=== PATIENT | male | born 1955 | race Caucasian/White ===

== ENCOUNTER 2024-03-14 20:17 | Emergency (ER) | payer OTHER, MEDICARE, SELFPAY ==
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
[2024-03-14 20:24] VITALS: BP 119/88; PULSE 84; RESP 18; TEMP 37; BMI 27.4
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
--- OUTSIDE RECORDS SUMMARY | 2024-03-14 22:13 | XMS_ITS | Continuity of Care Document ---
Author Organization [facility] Address [address] [place] [address] Phone Care Team Providers Care Battery Container Tester Name Role Phone Ye Perez MD Attending Provider Care Teams Visit Care Team Team Status: Inactive Member Role Status Dates Ye Perez MD [facility] Attending Provider Active Start: November 27, 2023 End: November 27, 2023 Visit Care Team Team Status: Inactive Member Role Status Dates Ye Perez MD [facility] Attending Provider Active Start: December 19, 2023 End: December 19, 2023 Patient Care Team Team Status: Inactive Member Role Status Dates Ye Perez MD [facility] Attending Provider Active Start: January 24, 2024 End: January 24, 2024 Chief Complaint and Reason for Visit Chief Complaint Admit Date Abnormal Echo November 27, 2023 2:20pm Abnormal Echo December 19, 2023 1: 06pm Abnormal Echo January 24, 2024 1 :43pm Reason for Visit Admit Date Edema November 27, 2023 2:20pm HFrEF (heart failure with reduced ejecti on fraction) November 27, 2023 2:20pm Abnormal echocardiography November 2:20pm HFrEF (heart failure with reduced ejecti on fraction) December 19, 2023 1:06pm Abnormal echocardiography December 18 1:06pm HFrEF (heart failure with reduced ejecti on fraction) January 24, 2024 1:43pm Abnormal echocardiography January 24, 2024 1:43pm Allergies, Adverse Reactions, Alerts No known allergies Social History Smoking Status Status Start Date End Date Date of Observa tion Ex-smoker (finding) January 24, 2024 8:09am Observation Status Observation Response Date of Response marital status January 23 8:09am Patient Sex Male January 23 3:57pm Assigned Sex Male [birth year] 1 956 Problems Active Problems Medical Problem Onset Date Status HFrEF (heart failure with reduced ejection fract ion) Unknown Active Edema Unknown Active Medications Medication Status Dose Units Route Directions Qty Days St art Date Stop Date End Date Instructions Adherence [id number] Active 1000 IU PO Daily 0 2012 4:43pm Magnesium Glycinate (Mag Glycinate) tablet Active TABLET 0 May 20, 2014 3:04pm Zinc Gluconate,Z inc Picolinate capsule Active CAPSUL E 0 May 20, 2014 3:04pm allergy tablets Active 2 TABLET PO Three Times A Day 0 May 20, 2014 3:04pm Atorvastati n 20 mg tablet Active 20 MG PO Daily 90 2023 1:45pm Sacubitril- Valsartan (Entresto) 24-26 mg tablet Active 1 TABLET PO Twice A Day 60 Octobe r 2023 11:41a m If tolerates increase dose to Oxybutynin Chloride 10 mg tablet extended release 24hr Active 10 MG PO Daily 2023 11:00p m Tamsulosin 0.4 mg capsule Active 0.4 MG PO Bedtime 2023 11:00p m Spironolact one (Aldactone) 25 mg tablet Active 25 MG PO Daily 30 2023 11:00p m Dapaglifloz in Propanediol (Farxiga) 10 mg tablet Active 10 MG PO Every Morning 30 Decobe r 2023 11:00p m Metoprolol Succinate (Toprol Xl) 100 mg tablet extended release 24 hr Active 100 MG PO Daily 30 Decobe r 2023 11:00p m Vitamin E Mixed 400 unit capsule Active UNIT PO Novemb er 2023 12:00a m Turmeric 400 mg capsule Active MG PO Novemb er 2023 12:00a m Metoprolol Succinate (Toprol Xl) 50 mg tablet extended release 24 hr Active 50 MG PO Daily 30 b er 2023 12:00a m this in addition to his 100mg tablet Procedures Procedure Date Performed Status CA EKG November 27, 2023 1:23pm comp leted CA EKG December 19, 2023 12:07pm comple alexis CA EKG January 24, 2024 1:44pm active Relevant Diagnostic Tests and/or Laboratory Data Laboratory Results Test Date/Time Result Interpretation Reference Range Result Comment Performing Site Sodium Level December 19, 2023 1:00pm 139 mmol/L 133-[address] [facility] [id number] [address] [place] [address] Potassium Level December 19, 2023 1:00pm 4.5 mmol/L 3.5-5.[address] [facility] [id number] [address] [place] [address] [place] [address] Chloride Level December 19, 2023 1:00pm 102 mmol/L 98-[address] [facility] [id number] [address] [place] [address] Carbon Dioxide Level December 19, 2023 1:00pm 28 mmol/L 21-[address] [facility] [id number] [address] [place] [address] [place] [address] Anion Gap December 19, 2023 1:00pm 9 mmol/L 3-[address] [facility] [id number] [address] [place] [address] Calcium Level December 19, 2023 1:00pm 9.5 mg/dL 8.6-10.[address] [facility] [id number] [address] [place] [address] [place] [address] Glucose Level December 19, 2023 1:00pm 91 mg/dL 70-99 A fasting glucose of 100-125 mg/dL indicates increased risk for diabetes (prediabetes).I nterpretive information based on Diagnosis and Classification of Diabetes Mellitus, [place] [employer]. [facility] [id number] [address] [place] [address] Blood Urea Nitrogen December 19, 2023 1:00pm 23 mg/dL 7-[address] [facility] [id number] [address] [place] [address] Creatinine December 19, 2023 1:00pm 1.5 mg/dL Above high normal 0.7-1.[address] [facility] [id number] [address] [place] [address] BUN/Creatinin e Ratio December 19, 2023 1:00pm 15.3 10.0-20.[address] [facility] [id number] [address] [place] [address] Estimated GFR (MDRD) December 19, 2023 1:00pm 47 mL/Min Below low normal 60-130 The Modified Diet in Renal Disease (MDRD) equation is accurate in non-hospitalize d patients known to have CKD and is the preferred method for drug dosing. The MDRD equation is less accurate at higher levels of BMI (> 20 kg/m2) and in populations with normal or near-normal GFR (above 60 mL/min per 1.73 m2), for which the CKD-EPI equation is preferred. [facility] [id number] [address] [place] [address] Estimated GFR (CKD-EPI) December 19, 2023 1:00pm 50 mL/Min Below low normal 60-130 The CKD-EPI equation was developed to provide a more accurate estimate of GFR among individuals with normal or only mildly reduced GFR (above 60 mL/min per 1.73 m2). It is less accurate at lower levels of BMI (<20 kg/m2). [facility] [id number] [address] [place] [address] Estimated GFR (Cockcroft-Ga ult) December 19, 2023 1:00pm 44 mL/Min Below low normal [id number] GFR-CG equation is the primary calculation used in estimating clearance of renal excreted medications. Use of this equation should be limited to medication clearance. [facility] [id number] [address] [place] [address] B-Type Natriuretic Peptide December 19, 2023 1:00pm 72 pg/mL <[address] [facility] [id number] [address] [place] [address] Vital Signs Vital Reading Result Reference Range Collection Date/Time Height 67 [in_i] November 27, 2023 1:27pm Weight 89.50 kg November 27, 2023 1:27pm Heart Rate 106 /min 60-100 November 27, 2023 1:32pm BP Systolic 124 mm[Hg] 100-139 November 27, 2023 1:32pm BP Diastolic 82 mm[Hg] 60-89 November 27, 2023 1:32pm BMI (Body Mass Index) 30.9 kg/m2 Septem javed 2023 1:27pm Height 67 [in_i] December 18, 12:14pm Weight 89.80 kg December 18, 12:14pm Heart Rate 87 /min 60-100 December 18, 12:14pm BP Systolic 118 mm[Hg] 100-139 December 18, 12:17pm BP Diastolic 80 mm[Hg] 60-89 December 18, 12:17pm BMI (Body Mass Index) 31.0 kg/m2 Octobe r 2023 12:14pm Height 67 [in_i] January 23, 2 024 1:44pm Weight 88.85 kg January 23, 2 024 1:44pm Heart Rate 83 /min 60-100 January 23, 2 024 1:44pm BP Systolic 109 mm[Hg] 100-139 January 23, 2 024 1:59pm BP Diastolic 74 mm[Hg] 60-89 January 23, 2 024 1:59pm BMI (Body Mass Index) 30.7 kg/m2 [facility] er 2023 1:44pm Insurance Providers Guarantor Julio Johnson Address [address] [facility] [address] Contact Info. Home Phone: Payer Policy Id Coverage Id Subscriber's Name Subscriber Id Effective Date Expiration Date [employer] Medicare PPO [id number] Julio Johnson [id number] Medicare A and B [id number] Julio Johnson [id number] Encounters Encounter Location(s) Arrival/Admit Date Discharge/Depart Date Provider(s) Departed Physician/Prov ider Office Visit [facility] November 27, 2023 1:20pm November 27, 2023 2:26pm Ye Perez MD [facility] Departed Physician/Prov ider Office Visit [facility] December 19, 2023 12:06pm December 19, 2023 1:05pm [facility]/Prov ider Office Visit [facility] January 24, 2024 1:43pm January 24, 2024 3:57pm Ye Perez MD [facility] Recent Diagnosis Onset Date Admit Date Edema Unknown November 27, 2023 2:20pm HFrEF (heart failure with re duced ejection fraction) Unknown November 27, 2023 2:20pm Abnormal echocardiography Unknown Novem 2023 2:20pm HFrEF (heart failure with re duced ejection fraction) Unknown December 19, 2023 1:06pm Abnormal echocardiography Unknown Octobe r 2023 1:06pm HFrEF (heart failure with re duced ejection fraction) Unknown January 24, 2024 1:43pm Abnormal echocardiography Unknown Novemb er 2023 1:43pm Assessments Diagnosis Onset Date Resolution Status Admit Date Edema noneactive November 2:20pm HFrEF (heart failure with reduced ejection fraction) noneactive Septe mber 2023 2:20pm Abnormal echocardiography noneactive November 27, 2023 2:20pm HFrEF (heart failure with reduced ejection fraction) noneactive Octob er 2023 1:06pm Abnormal echocardiography noneactive December 19, 2023 1:06pm HFrEF (heart failure with reduced ejection fraction) noneactive Novem 2023 1:43pm Abnormal echocardiography noneactive January 24, 2024 1:43pm Plan of Treatment Future Tests Future scheduled test information is unavailable Pending Tests Test Name Ordered Date Scheduled Date Sodium Level January 24, 2024 3:34pm Potassium Level January 24, 2024 3:34pm Chloride Level January 24, 2024 3:34pm Carbon Dioxide Level January 24, 2024 3:34pm Anion Gap January 24, 2024 3:34pm Calcium Level January 24, 2024 3:34pm Glucose Level January 24, 2024 3:34pm Blood Urea Nitrogen January 24, 2024 3:34pm Creatinine January 24, 2024 3:34pm BUN/Creatinine Ratio January 24, 2024 3:34pm Estimated GFR (MDRD) January 24, 2024 3:34pm Estimated GFR (CKD-EPI) January 24, 2024 3:34p m Estimated GFR (Cockcroft-Gault) January 23 3:34pm Basic Metabolic Panel January 24, 2024 2:16pm January 24, 2024 3:34pm Future Visits Future appointment information is unavailable Referrals to Other Providers Referral information is unavailable Future Procedures Future procedure information is unavailable Future Medications Future medication information is unavailable Patient Instructions Patient instructions are unavailable Progress Note Author Ye Perez [facility] Heart Note Date/Time January 24, 2024 2 :14pm [facility] Heart Patient: Julio Johnson [address] : 1955 Age/Sex: 6 8 / [place] [address] Status: REG AMB P#: [phone] F#: Loc: [facility] Acct: [id number] Visit Date: 01/24/24 MR:[id number] Cardiology Visit Date of Service: 01/24/24 0809 Assessment & Plan (1) Abnormal echocardiography: (2) HFrEF (heart failure with reduced ejection fraction): Order(s): Orders CA EKG Today I50.20 - Unspecified systolic (congestive) heart failure Medication(s): New metoprolol succinate ER (Toprol XL) this in addition to his 100mg tablet 50 mg PO DAILY 30 tabs 6RF Appointment was a face to face visit. Plan details: We discussed his plan. He seems to be doing well with medical therapy and responding symptomatically. He is back to lifting weights and being active. Ryland repeat a limited echo today to assess LV function. I am going to increase his Toprol to 150 mg a day. We will have him see electrophysiology for consideration of ICD. We will hold off on increasing his Entresto because of his creatinine. They are in agreement with the plan. I answered all of their questions. The case was discussed with nursing. Tobacco screening/follow-up Smoking tobacco status: former smoker (hx of one pack a day) Depression screening/follow-up Depression screening performed: No HPI 68-year-old male presents for follow-up. I have reviewed his old records including labs reporting creatinine 1.5 BNP 72 potassium 4.5. He had an echo in November reporting an EF of 25 to 30%. I reviewed my note from December 18 we increased his cardiac medications at that time. A plan for today was to repeat an echo and assess his LV function. If itis still down we will likely proceed with electrophysiology evaluation. Continue titration of his cardiac medications. He is currently on Lipitor, Farxiga, Toprol-XL, Entresto, spironolactone. He is here with family. He continues to feel better. He has tolerated his medications to date. Creatinine on January 01 was 1.7 with a potassium of 4.6. So we have held his current Entresto dose. He is back to lifting weights. He says he could walk 10 blocks. I ordered and personally reviewed his electrocardiogram revealing sinus rhythm. He has a history of cardiomyopathy since 2012. 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 He has had a previous stress test in the past revealing all fixed defects so it is thought that this is likely a nonischemic cardiomyopathy. Subjective/ROS: HENMT Ears: REPORTS hearing loss Neurologic REPORTS numbness ROS details All systems reviewed and negative unless otherwise noted above. Vital Signs 01/24/24 13:44 01/24/24 13:59 Height 5 ft 7 in Weight 88.85 kg Weight calculated (Hong Konger) 195.9 lb BMI 30.7 BP 102/71 109/74 Blood pressure location right arm left arm Blood pressure position/source sitting - automatic cuff sitting - automatic cuf f BP cuff size large adult large adult Pulse 83 Exam Objective/Exam: Constitutional Patient is an established patient. Exam details Exam details: Gen: Alert, no apparent distress, chronic hoarseness Eyes: PERR, normal conjunctiva ENT: Grossly normal hearing, Resp: NBS without crackles or wheezes CV: Normal s1 and s2, no significant edema Skin: Normal to inspection and palpation Musculoskeletal: no clubbing or cyanosis PFSH PFSH Active Problems (Updated 11/27/23 @ 15:03 by Ye Perez MD, [facility]) Edema R60.9 HFrEF (heart failure with reduced ejection fraction) I50.20 Tobacco/Substance use Smoking tobacco status: Patient is a former smoker. (hx of one pack a day) Vaping/e-cigarette use: never Alcohol use: has never used alcohol. Recreational drug use: has never used recreational drugs. Caffeine use: has never used caffeine. Social history Marital status: Intake Primary visit reason(s): Abnormal Echo Intake assessment: Patient here for scheduled follow up. No complaints today Appointment was a face to face visit Smoking tobacco status: former smoker (hx of one pack a day) Patient has never been a vaping/e-cigarette user Allergies No Known Allergies Allergy (Verified 01/24/24 13:52) Home Medication List - Last Reconciled 01/24/24 by Salina Zamudio RN [allergy tablets ] 2 tabs PO TID atorvastatin 20 mg tablet 20 mg PO DAILY dapagliflozin propanediol 10 mg tablet (Farxiga) 10 mg PO AM magnesium glycinate 100 mg (as glycinate) tablet (Mag Glycinate) metoprolol succinate 100 mg tablet,extended release 24 hr (Toprol XL) 100 mg PO DAILY oxybutynin chloride 10 mg tablet,extended release 24 hr 10 mg PO DAILY sacubitril 24 mg-valsartan 26 mg tablet (Entresto) 1 tab PO BID spironolactone 25 mg tablet (Aldactone) 25 mg PO DAILY tamsulosin 0.4 mg capsule 0.4 mg PO BEDTIME turmeric 400 mg capsule mg PO vitamin E mixed 400 unit capsule units PO [[id number] ] 1,000 IU PO DAILY zinc gluconate,zinc picolinate 30 mg capsule Fall Risk Assessment Last Done: No Data to Display Depression screening performed: No Visit Details Patient is an established patient. Accompanied by: Friend Pain Patient is not currently experiencing pain. Safety Patient denies other safety concerns. Learning & Language Readiness to learn: ready to learn Learning preferences: verbal Learning barriers: none Primary language: Hong Konger Coding Time spent Time spent details: 30 minutes was spent in reviewing outside records, preparing to see the patient,exam, and counseling of the patient and or family as well as discussing the casewith other medical providers. Ye Perez MD, FACC <Electronically signed by Ye Perez MD, FACC> 01/24/24 141 cc: ; : Document Initialized On: 01/24/24 0845
== END 2024-03-14 22:19 | disposition home or self-care (01) ==
PROVIDERS: Emergency Provider Family Medicine
DX: S00.81XA Abrasion of other part of head, initial encounter (principal); V48.5XXA Car driver injured in noncollision transport accident in traffic accident, initial encounter
CPT/HCPCS: 70450; 71046; 99284; 99291; G0390